=== PATIENT | male | born 1995 | race Two or more races ===

== ENCOUNTER 2019-04-05 01:48 | Emergency (ER) | payer OTHER ==
[~2019-04-05] VITALS: Ht 180.3 cm; Wt 74.8 kg
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
[2019-04-05] MEDS ORDERED: LIDOCAINE 1%-EPI 1:100,000 20 ML VIAL ONE (02:26)
--- NOTE | 2019-04-05 02:43 | NUR ---
DR SMITH AT THE BED SIDE TO SUTIRE THE L UPPER LIP LAC
[2019-04-05] MEDS ORDERED: IBUPROFEN 400 MG TABLET ONE (03:09)
--- NOTE | 2019-04-05 03:10 | NUR ---
pt was medicated w/ motrin as ordered.
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
[2019-04-05 03:19] VITALS: BP 122/75
[2019-04-05] MEDS ORDERED: IBUPROFEN 400 MG TABLET PO ONE (03:30)
== END 2019-04-05 03:19 ==
LOC: ER 01:57
DX: S01.511A Laceration without foreign body of lip, initial encounter (principal); Y04.0XXA Assault by unarmed brawl or fight, initial encounter; Y93.89 Activity, other specified; Y92.89 Other specified places as the place of occurrence of the external cause; Y99.8 Other external cause status
CPT/HCPCS: 12011; 99283; A6403; J3490